=== PATIENT | female | born 1995 | race African-American/Black ===

== ENCOUNTER 2020-04-30 19:58 | Emergency (ER) | payer OTHER ==
[~2020-04-30] VITALS: Ht 170.2 cm; Wt 117.9 kg
[2020-04-30] MEDS ORDERED: ALBU8HFA4 INH (20:08)
--- NOTE | 2020-04-30 20:31 | NUR ---
Dr. Benjamin at bedside for MSE.
--- NOTE | 2020-04-30 20:52 | NUR ---
Pt down for CT accompanied by Tech.
[2020-04-30] MEDS ORDERED: IBUPROFEN 800 MG TABLET ONE (20:54)
[2020-04-30] MEDS ORDERED: IBUPROFEN 800 MG TABLET PO ONE (21:00)
--- NOTE | 2020-04-30 21:08 | NUR ---
Pt back from CT in stable condition.
--- NOTE | 2020-04-30 21:33 | NUR ---
Written and verbal after care instructions given. Patient verbalizes understanding of instructions. Stressed to follow up or return to ER for worsening s/s. Patient discharged to home in stable condition. Ambulated out of ER in steady gait.
[2020-04-30 21:35] VITALS: BP 150/90
== END 2020-04-30 21:30 | disposition home or self-care (01) ==
LOC: ER 20:13
DX: S13.9XXA Sprain of joints and ligaments of unspecified parts of neck, initial encounter (principal); S23.3XXA Sprain of ligaments of thoracic spine, initial encounter; R51 Headache; V43.52XA Car driver injured in collision with other type car in traffic accident, initial encounter; Y92.410 Unspecified street and highway as the place of occurrence of the external cause; J45.909 Unspecified asthma, uncomplicated
CPT/HCPCS: 70450; A4663

== ENCOUNTER 2021-08-05 10:12 | Emergency (ER) | payer OTHER ==
[~2021-08-05] VITALS: Ht 170.2 cm; Wt 127.0 kg
[~2021-08-05 10:12] MED LIST: ALBU8HFA4 INH
[2021-08-05 11:00] LABS: HEMATOCRIT 32.5 % (31.2-41.9); MEAN CORPUSCULAR HEMOGLOBIN 25.9 uug (24.7-32.8); MEAN CORPUSCULAR VOLUME 77.6 fL (75.5-95.3); PLATELET COUNT (AUTO) 402 K/uL (179-408)
[2021-08-05 11:01] LABS: CREATININE 0.8 mg/dL (0.6-1.3); POTASSIUM 3.9 mmol/L (3.5-5.1)
--- NOTE | 2021-08-05 11:35 | NUR ---
Patient was seen byMD. Xrays done, copy of report given. DC, and follow up instructions given and explained to patient who states she undersrtands all instructions
== END 2021-08-05 11:36 | disposition home or self-care (01) ==
LOC: ER 10:12
DX: M79.644 Pain in right finger(s) (principal); J45.909 Unspecified asthma, uncomplicated; D64.9 Anemia, unspecified
CPT/HCPCS: 36415; 73130; 85025; 86140; A4663